=== PATIENT | male | born 1985 | race Caucasian/White ===

== ENCOUNTER 2017-01-21 15:48 | Emergency (ER) | payer SELFPAY ==
[2017-01-21 16:14] VITALS: BP 119/77
== END 2017-01-21 18:00 | disposition left against medical advice (07) ==
LOC: UCCORT 15:48
DX: Z53.21 Procedure and treatment not carried out due to patient leaving prior to being seen by health care provider (principal)
CPT/HCPCS: 93005; 99212; G0463